=== PATIENT | male | born 1990 | race Caucasian/White ===

== ENCOUNTER 2020-01-25 21:20 | Emergency (ER) | payer SELFPAY ==
[~2020-01-25] VITALS: Ht 175.3 cm; Wt 79.4 kg
[2020-01-25 21:20] VITALS: BP 129/75
== END 2020-01-25 22:57 | disposition home or self-care (01) ==
LOC: ER 21:33
DX: S81.811A Laceration without foreign body, right lower leg, initial encounter (principal); W20.8XXA Other cause of strike by thrown, projected or falling object, initial encounter; Y93.89 Activity, other specified; Y92.89 Other specified places as the place of occurrence of the external cause; Y99.8 Other external cause status

== ENCOUNTER 2020-02-08 21:58 | Emergency (ER) | payer SELFPAY ==
[~2020-02-08] VITALS: Ht 182.9 cm; Wt 79.4 kg
[2020-02-08 22:12] VITALS: BP 137/68
--- NOTE | 2020-02-08 22:25 | NUR ---
Patient discharged to home in stable condition. Written and verbal after care instructions given. Patient verbalizes understanding of instruction.
== END 2020-02-08 22:33 | disposition home or self-care (01) ==
LOC: ER 22:01
DX: S81.811D Laceration without foreign body, right lower leg, subsequent encounter (principal); X58.XXXD Exposure to other specified factors, subsequent encounter